=== PATIENT | female | born 1990 | race Caucasian/White ===

== ENCOUNTER 2024-03-08 22:24 | Emergency (ER) | payer BC ==
[2024-03-08] MEDS ORDERED: Sodium Chloride 0.9% 10 ML Syringe FLUSH PRN (22:34)
[2024-03-08 23:21] LABS: BASOPHILS PERCENT AUTO 0.3 % (0.2-1.5); EOSINOPHILS ABSOLUTE AUTO 0.2 x10-3/uL (0.0-0.8); EOSINOPHILS PERCENT AUTO 1.8 % (0.6-8.1); HEMATOCRIT 37.7 % (34.2-48.2); HEMOGLOBIN 12.7 g/dL (11.4-15.5); LYMPHOCYTES PERCENT AUTO 32.8 % (18.4-52.1); MEAN CORPUSCULAR HEMOGLOBIN 29.8 pg (23.9-33.9); MEAN CORPUSCULAR HGB CONC 33.8 g/dL (31.9-34.8); MEAN CORPUSCULAR VOLUME 88.3 fL (76.7-100.5); MEAN PLATELET VOLUME 8.9 fL (7.1-12.4); MONOCYTES ABSOLUTE AUTO 0.6 x10-3/uL (0.3-1.0); MONOCYTES PERCENT AUTO 5.3 % (4.4-15.7); NEUTROPHILS ABSOLUTE AUTO 7.3 x10-3/uL (1.5-6.3); NEUTROPHILS PERCENT AUTO 59.8 % (30.8-76.2); PLATELET COUNT,PLT 277 x10(3)uL (151-488); RED BLOOD CELL COUNT 4.27 x10(6)uL (3.60-5.20); RED CELL DISTRIBUTION WIDTH 13.5 % (12.3-16.5); WHITE BLOOD CELL COUNT,WBC 12.2 x10-3/uL (3.0-10.3)
[2024-03-08 23:22] LABS: BLOOD UREA NITROGEN,BUN 24 mg/dL (7-18); BUN/CREATININE RATIO 26.7 (9-20); CALCIUM 8.9 mg/dL (8.6-10.2); CARBON DIOXIDE,CO2 28 mmol/L (21-32); CHLORIDE,CL 105 mmol/L (100-110); CREATININE 0.9 mg/dL (0.55-1.02); ESTIMATED GFR 87 mL/min (>60); GLUCOSE RANDOM 104 mg/dL (80-116); SODIUM,NA 142 mmol/L (135-145)
[2024-03-08 23:28] LABS: ALANINE AMINOTRANSFERASE,ALT 50 U/L (12-36); ALBUMIN 3.5 g/dL (3.5-5.2); ALKALINE PHOSPHATASE 103 IU/L (56-112); ASPARTATE AMNIOTRANSFERASE,AST 18 IU/L (5-25); BILIRUBIN TOTAL 0.4 mg/dL (0.1-1.3)
[2024-03-08 23:29] LABS: C-REACTIVE PROTEIN 0.74 mg/dL (<0.50)
[2024-03-08 23:35] LABS: TROPONIN I < 4.0 pg/mL (4.0-60.3)
== END 2024-03-09 00:55 | disposition home or self-care (01) ==
LOC: FB.ED 22:24
DX: R07.89 Other chest pain (principal); I10 Essential (primary) hypertension; F17.210 Nicotine dependence, cigarettes, uncomplicated; Z91.012 Allergy to eggs
CPT/HCPCS: 36415; 80053; 83735; 84484; 85025; 85379; 86140; 93005; 99283; 99285